=== PATIENT | female | born 1985 | race Caucasian/White ===

== ENCOUNTER 2019-04-13 13:44 | Emergency (ER) | payer MEDICAID ==
[~2019-04-13] VITALS: Ht 167.6 cm; Wt 68.0 kg
[~2019-04-13 13:44] MED LIST: DIAZ-351 PO; OXYC-145 PO
[2019-04-13 14:08] VITALS: BP 113/74
[2019-04-13] MEDS ORDERED: ibuprofen 200mg tablet PO ONE (15:25)
--- NOTE | 2019-04-13 18:30 | NUR ---
notified petra gallardo that pt is lot of pain in her lft shoulder 06/29 verbal order to give torodol inj 15mg im once for the pain,will follow the order.
[2019-04-13] MEDS ORDERED: ketorolac tromethamine 15mg/ml inj. IM ONE (18:35)
[2019-04-13] MEDS ORDERED: HYDR-4383 PO (18:48)
== END 2019-04-13 19:00 | disposition home or self-care (01) ==
LOC: ER 13:44
DX: M50.321 Other cervical disc degeneration at C4-C5 level (principal); M25.512 Pain in left shoulder; G89.29 Other chronic pain; F17.200 Nicotine dependence, unspecified, uncomplicated; F12.90 Cannabis use, unspecified, uncomplicated; F10.99 Alcohol use, unspecified with unspecified alcohol-induced disorder; Z79.899 Other long term (current) drug therapy; Y90.9 Presence of alcohol in blood, level not specified
CPT/HCPCS: 72141; 96372; 99284; J1885

== ENCOUNTER 2019-08-22 11:55 | Emergency (ER) | payer MEDICAID ==
[~2019-08-22 11:55] MED LIST changes: +HYDR-4383 PO
== END 2019-08-22 13:07 | disposition left against medical advice (07) ==
LOC: ER 11:55
DX: S61.219A Laceration without foreign body of unspecified finger without damage to nail, initial encounter (principal); Z53.21 Procedure and treatment not carried out due to patient leaving prior to being seen by health care provider; Z79.899 Other long term (current) drug therapy; X58.XXXA Exposure to other specified factors, initial encounter; Y93.89 Activity, other specified; Y92.89 Other specified places as the place of occurrence of the external cause; Y99.8 Other external cause status

== ENCOUNTER 2019-08-22 13:06 | Emergency (ER) | payer MEDICAID ==
[~2019-08-22] VITALS: Ht 167.6 cm; Wt 65.9 kg
[~2019-08-22 13:06] MED LIST changes: +LIDOcaine 1% W/epiNEPHrine 1:100,000 20ml vial ONE
[2019-08-22 13:31] VITALS: BP 99/54
== END 2019-08-22 14:53 | disposition home or self-care (01) ==
LOC: ER 13:07
DX: S66.124A Laceration of flexor muscle, fascia and tendon of right ring finger at wrist and hand level, initial encounter (principal); S66.126A Laceration of flexor muscle, fascia and tendon of right little finger at wrist and hand level, initial encounter; S61.214A Laceration without foreign body of right ring finger without damage to nail, initial encounter; S61.216A Laceration without foreign body of right little finger without damage to nail, initial encounter; G89.29 Other chronic pain; F17.200 Nicotine dependence, unspecified, uncomplicated; F12.90 Cannabis use, unspecified, uncomplicated; F10.99 Alcohol use, unspecified with unspecified alcohol-induced disorder; Z72.89 Other problems related to lifestyle; Z79.899 Other long term (current) drug therapy; W26.0XXA Contact with knife, initial encounter; Y93.89 Activity, other specified; Y92.090 Kitchen in other non-institutional residence as the place of occurrence of the external cause; Y99.8 Other external cause status; Y90.9 Presence of alcohol in blood, level not specified
CPT/HCPCS: 12001; 99283

== ENCOUNTER 2019-08-24 10:20 | Outpatient (CLI) | payer MEDICAID ==
[~2019-08-24 10:20] MED LIST changes: -LIDOcaine 1% W/epiNEPHrine 1:100,000 20ml vial ONE
[2019-08-24 10:55] VITALS: BP 112/69
== END 2019-08-24 11:00 | disposition home or self-care (01) ==
LOC: ORTHO 10:20
PROVIDERS: ATTEND Orthopaedic Surgery
DX: S56.127D Laceration of flexor muscle, fascia and tendon of right little finger at forearm level, subsequent encounter (principal); S56.12 Laceration of flexor muscle, fascia and tendon of other and unspecified finger at forearm level; F17.210 Nicotine dependence, cigarettes, uncomplicated; W26.0XXD Contact with knife, subsequent encounter
CPT/HCPCS: G0463

== ENCOUNTER 2022-02-16 13:02 | Emergency (ER) | payer MEDICAID ==
[~2022-02-16] VITALS: Ht 170.2 cm; Wt 65.9 kg
[2022-02-16 13:06] VITALS: BP 113/73
[2022-02-16] MEDS ORDERED: bacitracin 15gm ointment TP ONE (13:45)
[2022-02-16] MEDS ORDERED: ondansetron 4mg rapidly disintigrating tab PO ONE (13:45)
[2022-02-16] MEDS ORDERED: clindamycin 150mg capsule PO ONE (13:45)
[2022-02-16] MEDS ORDERED: NEOM28.44 TP (13:47)
[2022-02-16] MEDS ORDERED: CLIN150C2 PO (13:47)
== END 2022-02-16 14:19 | disposition home or self-care (01) ==
LOC: ER 13:02
DX: L03.116 Cellulitis of left lower limb (principal); L03.032 Cellulitis of left toe; G89.29 Other chronic pain; M54.9 Dorsalgia, unspecified; F12.10 Cannabis abuse, uncomplicated; Z56.0 Unemployment, unspecified; Z79.899 Other long term (current) drug therapy
CPT/HCPCS: 10060; 99284